=== PATIENT | male | born 1950 | race Caucasian/White ===

== ENCOUNTER → 2025-01-30 07:42 | Outpatient (REF) | payer MEDICARE, OTHER, SELFPAY | LOC: EMG 07:42 | PROVIDERS: ATTENDING PHYSICIAN Podiatrist Foot & Ankle Surgery; FAMILY PHYSICIAN Family Medicine | DX: G60.3 Idiopathic progressive neuropathy (principal); G57.51 Tarsal tunnel syndrome, right lower limb; G57.52 Tarsal tunnel syndrome, left lower limb; R20.0 Anesthesia of skin | CPT/HCPCS: 95886; 95911 ==